=== PATIENT | male | born 2000 | race African-American/Black ===

== ENCOUNTER → 2020-10-19 | Outpatient (CLI) | payer OTHER ==
[~2020-10-19] MED LIST: FAMOTIDINE20 MG PO; PROTONIX40 MG PO
== END ==
LOC: LAB 08:45
DX: R11.2 Nausea with vomiting, unspecified (principal)
CPT/HCPCS: 36415; 74018; 80076; 82150; 83690

== ENCOUNTER → 2020-10-23 | Day surgery (SDC) | payer OTHER ==
[~2020-10-23] VITALS: Ht 188 cm; Wt 102.1 kg
== END | disposition home or self-care (01) ==
LOC: OR 09:32
DX: K21.00 Gastro-esophageal reflux disease with esophagitis, without bleeding (principal); K44.9 Diaphragmatic hernia without obstruction or gangrene; E66.01 Morbid (severe) obesity due to excess calories; F17.210 Nicotine dependence, cigarettes, uncomplicated; Z82.49 Family history of ischemic heart disease and other diseases of the circulatory system; Z80.1 Family history of malignant neoplasm of trachea, bronchus and lung; Z80.3 Family history of malignant neoplasm of breast; Z68.29 Body mass index [BMI] 29.0-29.9, adult; Z71.6 Tobacco abuse counseling
CPT/HCPCS: J2704; J7040

== ENCOUNTER 2021-08-02 16:20 | Emergency (ER) | payer OTHER ==
[2021-08-02 17:44] LABS: HEMOGLOBIN 14.4 gm/dl (14.0-17.5); RED BLOOD COUNT 4.58 M/UL (4.20-5.50); WHITE BLOOD COUNT 5.7 K/UL (4.5-11.0)
[2021-08-02 18:12] LABS: BUN/CREATININE RATIO 12 (0-10)
[2021-08-02] MEDS ORDERED: TORADOL 10 MG T10 MG PO (20:00)
[2021-08-02] MEDS ORDERED: CYCLOBENZAPRINE10 MG PO (20:00)
== END 2021-08-02 20:05 | disposition home or self-care (01) ==
LOC: ER1 16:20
PROVIDERS: Physician Assistant
DX: R07.89 Other chest pain (principal); F17.290 Nicotine dependence, other tobacco product, uncomplicated; J45.909 Unspecified asthma, uncomplicated; Z79.899 Other long term (current) drug therapy
CPT/HCPCS: 71045; 80053; 82550; 82553; 83874; 84484; 85025; 93005; 99285

== ENCOUNTER → 2021-11-04 | Outpatient (CLI) | payer OTHER ==
[~2021-11-04] MED LIST changes: +CYCLOBENZAPRINE10 MG PO; +TORADOL 10 MG T10 MG PO
== END ==
LOC: KOH-I 15:38
DX: M79.632 Pain in left forearm (principal); M79.642 Pain in left hand; M25.532 Pain in left wrist
CPT/HCPCS: 73090; 73110; 73130